=== PATIENT | female | born 1970 | race Caucasian/White ===

== ENCOUNTER → 2023-06-11 15:41 | Outpatient (REF) | payer BC, SELFPAY | LOC: HWWDC 15:41 | PROVIDERS: ATTENDING PHYSICIAN Physician Assistant Medical | DX: Z12.31 Encounter for screening mammogram for malignant neoplasm of breast (principal) | CPT/HCPCS: 77063; 77067 ==

== ENCOUNTER → 2023-06-19 08:59 | Outpatient (REF) | payer BC, SELFPAY | LOC: WDC 08:59 | PROVIDERS: ATTENDING PHYSICIAN Physician Assistant Medical | DX: R92.8 Other abnormal and inconclusive findings on diagnostic imaging of breast (principal) | CPT/HCPCS: 77062; 77066 ==

== ENCOUNTER → 2023-07-02 15:25 | Outpatient (REF) | payer BC, SELFPAY | LOC: HWRAD 15:25 | PROVIDERS: ATTENDING PHYSICIAN Physician Assistant Medical | DX: R74.8 Abnormal levels of other serum enzymes (principal) | CPT/HCPCS: 76700 ==

== ENCOUNTER → 2023-07-06 07:42 | Outpatient (REF) | payer BC, SELFPAY ==
--- NOTE | 2023-07-06 08:48 | OID.BR.INTR ---
[facility] Navigator - Initial
- -
Date of Contact: 07/06/23
Met with patient. Patient given written information on navigator services and support services available at [facility]. Will follow up as needed per protocol.
== END ==
LOC: WDC 07:42
PROVIDERS: ATTENDING PHYSICIAN Physician Assistant Medical
DX: R92.1 Mammographic calcification found on diagnostic imaging of breast (principal)
CPT/HCPCS: 88305; 19081; 76098; A4648

== ENCOUNTER → 2023-07-18 10:17 | Outpatient (REF) | payer BC, SELFPAY | LOC: RAD 10:17 | PROVIDERS: ATTENDING PHYSICIAN Physician Assistant Medical | DX: M25.471 Effusion, right ankle (principal); M25.472 Effusion, left ankle | CPT/HCPCS: 73610 ==

== ENCOUNTER → 2023-08-20 07:40 | Outpatient (REF) | payer BC, SELFPAY | LOC: EMG 07:40 | PROVIDERS: ATTENDING PHYSICIAN Internal Medicine Rheumatology; FAMILY PHYSICIAN Physician Assistant Medical | DX: R20.2 Paresthesia of skin (principal) | CPT/HCPCS: 95886; 95913 ==

== ENCOUNTER → 2023-08-22 08:39 | Outpatient (REF) | payer BC, SELFPAY | LOC: RAD 08:39 | PROVIDERS: ATTENDING PHYSICIAN Internal Medicine Rheumatology; FAMILY PHYSICIAN Physician Assistant Medical | DX: M25.50 Pain in unspecified joint (principal); D86.9 Sarcoidosis, unspecified | CPT/HCPCS: 71046; 72050; 73030; 73110; 73130; 73630 ==

== ENCOUNTER 2023-10-04 16:33 | Inpatient (IN) | payer BC, SELFPAY ==
[2023-10-04] VITALS (10 sets, daily range): BP systolic 108–167; BP diastolic 66–108; BMI 22.8; BMI 21.5
[2023-10-04 08:22] LABS: % Basophils 0.5 % (0-2); % Eosinophils 0.4 % (0-6); % Immature Granulocytes 0.4 % (0-0.5); % Lymphocytes 6.1 % (20.5-51.1); % Monocytes 5.6 % (1.7-9.3); Absolute Lymphocytes 0.5 10^3/uL (1.2-3.4); Absolute Monocytes 0.5 10^3/uL (0.1-0.6); Absolute Neutrophils 7.3 10^3/uL (1.4-6.5); Hematocrit 37.4 % (37.0-47.0); Hemoglobin 13.2 g/dL (12.0-16.0); Mean Corp Hgb Conc. 35.3 g/dL (33.0-37.0); Mean Corpuscular Hgb 31.3 pg (27.0-31.0); Mean Corpuscular Volume 88.6 fL (81.0-99.0); Mean Platelet Volume 9.5 fL (7.4-10.4); Nucleated Red Blood Cells % 0 %; Platelet Count 164 10^3/uL (130-400); Red Blood Cell Count 4.22 10^6/uL (4.20-5.40); Red Cell Dist. Width 14.7 % (11.5-14.5); White Blood Cell Count 8.4 10^3/uL (4.8-10.8)
--- NOTE | 2023-10-04 08:26 | ED.GENMED ---
History of Present Illness
General
Chief Complaint: Abdominal Symptoms
Source: patient
Time Seen by Provider: 10/04/23 08:16
History of Present Illness
History of Present Illness:
53-year-old female with no significant past medical history presenting to the emergency department with significant other after patient awoke around 2 AM with persistent nausea and vomiting and subsequently also experiencing upper chest burning
sensation that has been constant with patient continuously retching. Significant other stating that patient has not been able to bring anything up over the last 2 hours but is still persistently retching. Patient is noted to drink 3 martinis daily
with last drink being around 7 PM last night. No history of similar pain or vomiting in the past. Denies any fevers, chills, rigors. States no abdominal pain associated. No urinary symptoms or bowel changes.
Past History
Past History
ED Past Medical History: None
ED Past Surgical History: None
Social History
Tobacco: Non-smoker
Alcohol: Daily (3 martinis)
Drug: None
Personal: Partner
Living: with family
Employment: Employed
Review of Systems
Review of Systems
All Other Systems: ROS reviewed and negative except as documented in HPI and ROS
Phy Exam
Physical Exam
Physical Exam:
GENERAL: Alert , appears uncomfortable, retching but no active vomitus
EYE: clear conjunctiva b/l
HEAD: NCAT
ENT: o/p clr, mmm.
CARDIAC: Regular rate and rhythm .
LUNGS: Clear breath sounds bilaterally, no acute respiratory distress, no wheezes/rales/rhonchi
Chest wall: No crepitus but patient does have some mild tenderness over the sternum
ABDOMEN: Soft, without focal tenderness, no r/g, no cvat
NEUROLOGICAL: Alert and oriented
SKIN: Warm and dry, skin intact.
MUSCULOSKELETAL: well perfused.
PSYCH: Normal and appropriate interaction.
Scores
Heart Failure Risk
Heart Failure Risk Score: Not Applicable
Heart Score for Chest Pain Patients
STEMI patient?: Not applicable
Withdrawal Assessment of Alcohol
Withdrawal Assessment Completed?: Yes
Nausea and Vomiting: Constant nausea, frequent dry heaves and vomiting
Tactile Disturbances: None
Tremor: Moderate, with patient's arms extended
Auditory Disturbances: Not present
Paroxysmal Sweats: No sweat visible
Visual Disturbances: Not present
Anxiety: Mild anxiety
Headache, Fullness in Head: Mild
Agitation: Normal activity
Orientation and clouding of sensorium: Oriented and can do serial additions
Total CIWA Score: 14
Alcohol Withdrawal Medication Recommendation: Equal to MSAS Score 5-7. Lorazepam 1mg IV or PO NOW & re-assess q2hrs
Course
Orders/Labs/Results
Orders:
Orders
10/04/23 07:59
Complete Blood Count/With Diff Urgent
Comprehensive Metabolic Panel Urgent
Lipase Urgent
10/04/23 08:03
EKG [Electrocardiogram (*1)] Urgent
Reason for Study: Chest Pain
EKG- Treatment ONCE
10/04/23 08:25
Add On- LAB Urgent
Tests Added?: troponin
0.9% Sodium Chloride 1000 ml [Nss] 1,000 ml IV BOLUS
Ondansetron Injectable [Zofran] 4 mg IV NOW STA
Pantoprazole [Protonix IV] 40 mg IV NOW STA
CR Chest - 2 Views Urgent
Comment:
Reason For Exam: vomiting, chest pain
10/04/23 09:16
Troponin I Routine
Comment: TP BE COLLECTED
10/04/23 10:59
Ondansetron Injectable [Zofran] 4 mg IV NOW STA
US Abdomen Complete/Upper Urgent
Comment:
Reason For Exam: persistent vomiting, LFT elevated, ETOH hx
10/04/23 11:56
0.9% Sodium Chloride 1000 ml [Nss] 1,000 ml IV BOLUS
10/04/23 14:00
Lorazepam [Ativan] 1 mg IV NOW STA
Metoclopramide [Reglan] 10 mg IV NOW STA
Abnormal Lab Results
10/04/23
07:59
MCH 31.3 H pg
(27.0-31.0)
RDW 14.7 H %
(11.5-14.5)
Absolute Neuts (auto) 7.3 H 10^3/uL
(1.4-6.5)
Absolute Lymphs (auto) 0.5 L 10^3/uL
(1.2-3.4)
Neutrophils % 87.0 H %
(42.2-75.2)
Lymphocytes % 6.1 L %
(20.5-51.1)
Potassium 3.4 L mmol/L
(3.5-5.1)
Creatinine 0.4 L mg/dL
(0.6-1.0)
Glucose 190 H mg/dl
(70-99)
Total Bilirubin 1.5 H mg/dl
(0.2-1.3)
AST 105 H U/L
(14-36)
ALT 39 H U/L
(0-35)
Alkaline Phosphatase 135 H U/L
(38-126)
Total Protein 8.6 H g/dl
(6.3-8.2)
Albumin 5.2 H g/dl
(3.5-5.0)
10/04/23 07:59
10/04/23 07:59
Vital Signs
Initial and Last Documented VS:
Initial Vital Signs
Temp Pulse BP Pulse Ox
98.2 F 77 163/91 95
10/04/23 07:48 10/04/23 07:48 10/04/23 07:48 10/04/23 07:48
Last Documented Vital Signs
Temp Pulse Resp BP Pulse Ox
98.2 F 75 28 167/96 99
10/04/23 07:48 10/04/23 08:03 10/04/23 08:03 10/04/23 08:03 10/04/23 08:03
MDM/Problems Addressed
Differential Diagnosis Includes:
GERD, gastritis, pancreatitis, Boerhaave syndrome, gastroenteritis
MDM/Problems Addressed:
3-year-old female presenting to the emergency department for evaluation of persistent nausea and vomiting since 2 AM with sudden onset. Patient also noted pain started at the same time as the nausea and vomiting. No crepitus to suggest Boerhaave's
however given the amount of retching and patient's pain that she is describing will obtain a chest x-ray. Labs initiated on arrival. I did add on a troponin. Will treat symptoms with Zofran, Protonix and fluids. Reassessment following
*Radiology
Radiology exam reviewed: preliminary read by ED provider (Normal x-ray) and radiology read reviewed (Fatty liver, cholelithiasis without evidence for acute cholecystitis)
*Pulse Oximetry
Patient hypoxic: no
*EKG
Interpreted by ED Provider?: Yes
Comparison EKG: no comparison EKG present
Heart Rate: 66
Rate: normal
[place]: left axis deviation
Ischemia: no ischemia
*Gmat Instructor Interpretation
Rate: normal
Rhythm: sinus
*Critical Care Note
Total Time (30-74mins, 75-104mins- exclusive of procedures): Not Applicable
Comment
Comment:
On reevaluation patient's symptoms are improving. No retching. Patient's labs most consistent with chronic alcohol use. Will continue to monitor and reassess with pending p.o. trial.
Following first re-eval, patient started to have retching again. Additional zofran ordered. I added on US as well given LFT elevation but suspect this is 2/2 ETOH use
On continued reevaluation patient is now having tremors, tachycardic and still having retching/nausea and vomiting. I have clinical concern for possible alcohol withdrawal and given patient's pain and symptoms possibility for cholecystitis.
Ultrasound shows fatty liver combined with gallstones but no evidence for cholecystitis. Given patient's continued symptoms right medications combined with what appears to be signs of alcohol withdrawal will admit for further treatment. 1 mg
Ativan IV and Reglan 10 mg IV ordered for further symptomatic control. Hospitalist team notified and accepts for continued evaluation and treatment.
Patient Management
Discussion with other providers: Hospitalist
ED Attending Note
-
Portions of this chart may have been created with voice recognition software.� Occasional wrong word or��sound alike� substitutions may have occurred due to the inherent limitations of voice recognition software.
Discharge Plan
Departure
Patient Disposition: Admit
Date of Disposition: 10/04/23
Time of Disposition: 14:11
Presentation/result/management discussed w/ accepting MD/DO: Hospitalist
Discharge Problem:
Alcohol withdrawal, Nausea and vomiting, Cholelithiasis
Referrals:
Teresa Alcantar PA [Family Provider] -
Interventions
Interventions:
*Risk Screen - Suicide Last Done: 10/04/23 07:48
*General Assessment Last Done: 10/04/23 07:48
*Neglect/Abuse Screening Last Done: 10/04/23 07:48
ED- Fall Risk Assessment Last Done: 10/04/23 08:27
*ED COVID-19 Vaccine History Last Done: 10/04/23 07:48
TL-Gelngh-Plhcduhgcm Assessment Last Done: 10/04/23 08:27
Discharge Date and Time
Print Language: KAZAKH
[2023-10-04 08:30] LABS: ALT (SGPT) 39 U/L (0-35); AST (SGOT) 105 U/L (14-36); Albumin 5.2 g/dl (3.5-5.0); Alkaline Phosphatase 135 U/L (38-126); Blood Urea Nitrogen 7 mg/dl (7-17); Calcium 9.8 mg/dl (8.4-10.2); Carbon Dioxide 23 mmol/L (22-30); Chloride 99 mmol/L (98-107); Estimated Creatinine Clearance 88 ml/min; Glucose 190 mg/dl (70-99); Lipase 52 U/L (23-300); Potassium 3.4 mmol/L (3.5-5.1); Sodium 141 mmol/L (135-145); Total Bilirubin 1.5 mg/dl (0.2-1.3); Total Protein 8.6 g/dl (6.3-8.2); eGFR > 60.00
[2023-10-04] MEDS: NSS 1000 IV ×3 (09:15→18:49)
[2023-10-04] MEDS: PROTONIX IV 40 MG IV (09:16)
[2023-10-04] MEDS: ZOFRAN 4 MG IV ×2 (09:16→11:05)
[2023-10-04 09:52] LABS: Troponin I < 0.012 ng/ml
[2023-10-04] MEDS: REGLAN 10 MG IV (15:14)
[2023-10-04] MEDS: ATIVAN 1 MG IV (15:14)
--- NOTE | 2023-10-04 16:47 | HPS.HSE ---
Family Physician
-
Family Physician: Teresa Alcantar
Chief Complaint
-
Burning chest pain, intractable nausea vomiting
History of Present Illness
53-year-old female with past history of hypothyroidism, hyperlipidemia presenting to the ER with multiple episodes of nausea, bilious vomiting and burning chest pain that woke her up last night at around 2 AM. Patient notes chills and 2 episodes of
loose stools. No fever, abdominal pain, urinary symptoms, photophobia, phonophobia, change in medications. Did not notice blood in her stool and vomits. Patient drinks 3 martinis daily, last drink was at 7 PM last night. Patient had quit
drinking in March 2023 but resumed drinking alcohol a few months ago. Does not report history of withdrawal symptoms on days that she does not drink. She reports no symptoms in her significant other. 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
her joint pain and tingling sensation in her upper and lower extremities. No headaches. Very mild tremor on extension of upper extremities. CIWA score was 14 in ER. Abdominal ultrasound this admission shows hepatosplenomegaly and cholelithiasis
without gallbladder wall thickening and CBD dilatation. Earlier lab test in June 2023 show mildly elevated AST, ALT, ALP with normal total bilirubin. Abdominal ultrasound in May 2023 did not demonstrate gallbladder stones. Hepatitis panel
negative. She is currently not feeling nauseous and not throwing up.
Medical History
Past Medical History
Past Medical History: Reports Hypercholesterolemia, Hypothyroidism and Other (IBS in childhood)
Past Surgical History: Reports None
Social History
Tobacco: Former Smoker
Alcohol: Daily (3 martinis daily)
Living: With Family
Family History
Family History: CAD (Mother has CAD (stents)) and Other (Father has SVT. Sister has PVC.)
Allergies / Home Medications
Allergies reflects when Allergies were last updated in [facility].
Home Medications with original date entered in [facility]
Allergy/Medication List:
Allergies
Allergy/AdvReac Type Severity Reaction Status Date / Time
NKA - No Known Allergies Allergy Uncoded 06/17/07 10:55
Home Medications
atorvastatin 20 mg tablet 20 mg PO QPM 10/04/23
cyanocobalamin (vitamin B-12) 1,000 mcg tablet 1,000 mcg PO DAILY 10/04/23
ergocalciferol (vitamin D2) 1,250 mcg (50,000 unit) capsule 1,250 mcg PO MO 10/04/23
levothyroxine 75 mcg tablet (Synthroid) 75 mcg PO DAILY 10/04/23
Review of Systems
-
History Source: Patient
EENT: Reports No Symptoms
Respiratory: Reports No Symptoms
Cardiac: Reports No Symptoms
Abdomen/GI: Reports No Symptoms
: Reports No Symptoms
Musculoskeletal: Reports Joint Pain and Other (Tingling sensation in upper and lower extremities)
Hematologic/Lymphatic: Reports No Symptoms
Psych: Reports Anxiety
Physical Exam
Vital Signs
Vital Signs
Temp Pulse Resp BP Pulse Ox
98.2 F 97 21 125/74 96
10/04/23 07:48 10/04/23 15:30 10/04/23 15:30 10/04/23 15:29 10/04/23 15:30
Physical Exam
General: Well Developed, Well Nourished and No Apparent Distress
Respiratory: Clear
Cardiac: S1/S2 and Regular Rhythm
GI: Soft, Non Tender, Non Distended, Normal Bowel Sounds and Organomegaly (Hepatomegaly)
Musculoskeletal: No Edema
Neuro: Awake, Alert and Oriented
Laboratory Results
-
10/04/23 07:59
10/04/23 07:59
Laboratory Results
Total Bilirubin 1.5 mg/dl (0.2-1.3) H 10/04/23 07:59
AST 105 U/L (14-36) H 10/04/23 07:59
ALT 39 U/L (0-35) H 10/04/23 07:59
Alkaline Phosphatase 135 U/L (38-126) H 10/04/23 07:59
Troponin I < 0.012 ng/ml 10/04/23 09:16
Lipase 52 U/L (23-300) 10/04/23 07:59
Impression/Plan
-
IMPRESSION: 53-year-old female with history of hypothyroidism, hyperlipidemia presenting with intractable nausea and vomiting.
PLAN:
Intractable nausea/vomiting
-Likely multifactorial, secondary to alcohol withdrawal, gastritis, less likely biliary colic
-No right upper quadrant pain or tenderness, LFTs abnormal (chronic), GI consult appreciated
-IV fluids, Zofran, Protonix
-Clear fluids
Alcohol withdrawal syndrome
-Alcohol withdrawal protocol
-Reassess tomorrow
Hyperbilirubinemia
-Mildly elevated total bilirubin (1.5)
-No right upper quadrant pain or tenderness
-Abdominal ultrasound demonstrates cholelithiasis without gallbladder wall thickening
-GI consult
Hepatosplenomegaly, abnormal liver function tests
-Likely secondary to chronic alcohol use
-Check LFTs tomorrow
-GI consult
Hyperlipidemia
-Continue atorvastatin
Hypothyroidism
-Continue levothyroxine
Full code
DVT prophylaxis Lovenox
--- NOTE | 2023-10-04 17:21 | W.PN.UPDATE ---
Update Note
Progress Note Update
Seen and examined by me independently in collaboration with the medical translator Veronika.
Lab data and imaging data reviewed.
Addendum as below :
53-year-old female presents with acute onset of nausea vomiting and burning abdominal pain starting around 2 AM. She was in her usual state of health. She had her dinner and slept around 830 but then at 2:00 she was woken up by about GI
symptoms. She had multiple episodes of vomiting. She had this burning kind of lower chest pain. She had 2 loose bowel movements. No fevers but she felt chilly.
She denies any chronicity to her GI symptoms. She in the past was told may be irritable bowel syndrome. She denies any heartburn or requiring any as needed medication for heartburn. Denies any reflux symptoms.
Currently denying any abdominal pain. Denies prior history of peptic ulcer disease. No history of pancreatitis.
She had chillie for dinner prepared by . is ok.
She last week had rheumatological evaluation. Small joint symptoms in her hands and she got rheumatological blood work. Follow-up appointment is pending.
She apparently tells me that rheumatology wanted her to go to see neurology for neuropathy and also advised to see a GI physician because of abnormal liver function test. Abnormal liver function test were noted in May or June blood work.
She had issues with alcoholism in the past and went cold turkey but then she started back in June after her birthday and anniversary celebrations. She is now drinking 3 glasses of martini every day. Occasionally she goes without alcohol the day at
2 without any withdrawal symptoms. Denies any prior history of withdrawal seizures.
In ER she needed multiple medications for upper GI symptoms and that she was not tolerating any diet so she is referred to medicine for further evaluation and treatments.
Past medical history of hyperlipidemia hypothyroidism noted. Non-smoker.
Afebrile and hemodynamically stable. Tachycardic-sinus rhythm on the monitor.
Looks bit anxious. Occasional tremors noted. No agitation. Alert and oriented timesx 3.
S1 plus S2 regular. Chest is clear.
Abdomen palpable liver edge noted mostly epigastric area. No tenderness. No guarding rigidity.
Neurologically grossly nonfocal.
Intractable nausea and vomiting-acute onset since middle of the night-family history presenting with concern of manage possible gastric pathology-gastritis, erosions. In the differential could be foodborne but nobody sick at home. Another
differential is biliary colic with abdo pain which is now better.
She ultrasound done and now beginning of this year which showed no cholelithiasis and now she has cholelithiasis. No evidence of cholecystitis. If symptoms were to be continued then would consider HIDA scan. For now treat symptomatically with
PPI, antiemetics and IV fluids. Keep on clear liquid diet.
Abnormal liver function test-based on labs from [facility] on patient phone these are chronic. There was also hepatosplenomegaly. There is palpable hepatomegaly today. She has ongoing alcoholism issues. Lipase is normal. no bile duct
obstruction on ultrasound today. No ascites noted. Consult GI.
Alcohol use disorder-watch out for withdrawal.
--- NOTE | 2023-10-04 18:36 | PTCARENOTE ---
Rcvd pt from ED, pt is a&ox4, in no distress, appears unsteady on feet, will need assistance to bathroom. Vitals stable, STach at 101. no complaints of N/V just a headache.
[2023-10-04 18:56] LABS: INR 1.37; PT 16.7 Sec (11.4-14.6)
[2023-10-04 18:57] LABS: APTT 33.9 Sec (23.4-35.0)
[2023-10-04 19:02] LABS: GGTP 395 U/L (12-43); Magnesium 1.1 mg/dl (1.6-2.3); Phosphorus 4.3 mg/dl (2.5-4.5)
[2023-10-04 19:04] LABS: Alcohol None Detected
[2023-10-04 19:08] LABS: B-Hydroxybutyrate 0.33 mmol/L (0.02-0.27)
[2023-10-04] MEDS: LIPITOR 20 MG PO (19:38)
[2023-10-04] MEDS: LOVENOX 40 MG SC (19:38)
[2023-10-04] MEDS: THIAMINE INJECTION 200 MG IV (19:38)
[2023-10-04] MEDS: TYLENOL 650 MG PO (23:21)
[2023-10-05 01:33] LABS: Urine Albumin Negative (Neg - Trace); Urine Bilirubin Negative (Negative); Urine Character Clear (Clear); Urine Color Yellow; Urine Glucose Negative (Negative); Urine Ketone Negative (Negative); Urine Leukocyte 1+ (Negative); Urine Nitrite Negative (Negative); Urine Occult Blood Trace (Negative); Urine Urobilinogen Negative (Neg - 1+)
[2023-10-05 01:45] LABS: Urine Squamous Cell 16-20 /LPF (Few)
[2023-10-05 01:46] LABS: Urine Bacteria Few (Negative); Urine Red Blood Cell None Seen /HPF (0-2); Urine White Cell 30-40 /HPF (0-5)
[2023-10-05] MEDS: NSS 1000 IV ×3 (02:38→22:18)
[2023-10-05] MEDS: SYNTHROID 75 MCG PO (05:45)
[2023-10-05 07:03] LABS: ALT (SGPT) 28 U/L (0-35); AST (SGOT) 80 U/L (14-36); Alkaline Phosphatase 98 U/L (38-126); Blood Urea Nitrogen 5 mg/dl (7-17); Calcium 8.7 mg/dl (8.4-10.2); Carbon Dioxide 25 mmol/L (22-30); Chloride 100 mmol/L (98-107); Estimated Creatinine Clearance 88 ml/min; Glucose 103 mg/dl (70-99); Potassium 3.1 mmol/L (3.5-5.1); Sodium 133 mmol/L (135-145); Total Bilirubin 1.4 mg/dl (0.2-1.3); eGFR > 60.00
[2023-10-05] MEDS: NSS (PRESERVATIVE FREE) 10 ML IV (07:32)
[2023-10-05] MEDS: PROTONIX IV 40 MG IV (07:33)
[2023-10-05] MEDS: THIAMINE INJECTION 200 MG IV ×2 (07:33→19:47)
[2023-10-05] MEDS: VITAMIN B-12 1000 MCG PO (07:33)
[2023-10-05] MEDS: FOLVITE 1 MG PO (07:34)
[2023-10-05 07:37] LABS: % Basophils 0.4 % (0-2); % Eosinophils 0.1 % (0-6); % Immature Granulocytes 0.6 % (0-0.5); % Lymphocytes 16.4 % (20.5-51.1); % Monocytes 11.3 % (1.7-9.3); % Neutrophils 71.2 % (42.2-75.2); Absolute Lymphocytes 1.2 10^3/uL (1.2-3.4); Absolute Monocytes 0.8 10^3/uL (0.1-0.6); Hematocrit 32.3 % (37.0-47.0); Hemoglobin 11.4 g/dL (12.0-16.0); Mean Corp Hgb Conc. 35.3 g/dL (33.0-37.0); Mean Corpuscular Hgb 32.2 pg (27.0-31.0); Mean Corpuscular Volume 91.2 fL (81.0-99.0); Mean Platelet Volume 10.3 fL (7.4-10.4); Nucleated Red Blood Cells % 0 %; Platelet Count 117 10^3/uL (130-400); Red Blood Cell Count 3.54 10^6/uL (4.20-5.40); Red Cell Dist. Width 14.6 % (11.5-14.5); White Blood Cell Count 7.1 10^3/uL (4.8-10.8)
[2023-10-05] MEDS: DRISDOL (VITAMIN D2) 50000 UNITS PO (07:42)
[2023-10-05 07:56] VITALS: BP 125/69
[2023-10-05] MEDS: MAGNESIUM SULFATE 100 IV (08:56)
[2023-10-05] MEDS: KCL 40 MEQ PO (08:56)
[2023-10-05 10:55] VITALS: BMI 21.5
[2023-10-05] MEDS: TYLENOL 650 MG PO (13:27)
--- NOTE | 2023-10-05 14:01 | W.PN.HOSP.TC ---
Addendum entered and electronically signed by Demarcus Sanchez MD 10/05/23 16:56:
I personally performed a history and physical exam of the patient and discussed management with the resident. I reviewed the resident's note and agree with the documented findings and plan of care HPI/CC except for changes in documentation.
53-year-old with intractable nausea and vomiting
Ultrasound of the abdomen-hepatosplenomegaly. Hepatic parenchymal disease with fibrofatty changes. Cholelithiasis
CVS: S1-S2 normal
Chest: CTA B/L
Abdomen: Soft, mild epigastric tenderness/ Bowel sounds present
Extremities: No edema
# Intractable nausea and vomiting
Likely multifactorial from alcohol gastritis/alcohol withdrawal
Continue IV fluids, antiemetics and PPI
Clear liquids
# Alcohol use disorder with withdrawal
Continue MSAS protocol
Ativan as needed
Case management evaluation to see if the patient would benefit from rehab
# Cholelithiasis/hepatosplenomegaly/abnormal liver function tests
Hepatic steatosis
Elevated LFTs likely secondary to alcohol use and alcoholic hepatitis
CT A/P
# Hyponatremia-check osmolality studies, if not getting better
# Hypokalemia and hypomagnesemia-replace and recheck in am
# Thrombocytopenia-likely secondary to alcohol effect on bone marrow
# Hyperlipidemia-continue statin
# Abnormal urinalysis- repeat
# Hypothyroidism-continue Synthroid
# DVT prolapses and Lovenox
# Full code
Discussed with nursing
D/W GI
Original Note:
Today's Communication/Plan
-
CT abdomen pelvis with IV and oral contrast scheduled for today
Continue alcohol withdrawal protocol
Replete potassium and check later today
Replete magnesium and check later today
Assessment / Plan
Assessment / Plan
IMPRESSION: 53-year-old female with alcohol use disorder presenting with intractable nausea vomiting.
PLAN:
Intractable nausea vomiting
- Likely multifactorial, secondary to alcohol withdrawal, gastritis, less likely biliary colic
- No right upper quadrant pain or tenderness, LFTs mildly elevated (chronic)
- GI consult appreciated
- Abdomen pelvis CT scan with IV and oral contrast pending
- Continue IV fluids, Zofran, Protonix
- Continue clear fluids
Alcohol withdrawal syndrome
- Started on alcohol withdrawal protocol
- MSAS score:3
Hypokalemia, hypomagnesemia
- Replete potassium and magnesium
- Check labs later today
Hyperbilirubinemia
- Mildly elevated total bilirubin, now downtrending (1.4 today)
- No right upper quadrant pain or tenderness
- Abdominal ultrasound demonstrates cholelithiasis without gallbladder wall thickening
- GI consult appreciated
Hepatosplenomegaly, abnormal liver function tests
- Likely secondary to alcohol use disorder
- GI consult appreciated
- Outpatient follow-up
Hyperlipidemia
-Continue atorvastatin
Hypothyroidism
-Continue levothyroxine
Full code
DVT prophylaxis Lovenox
Anticipated Discharge: 24 - 48 hours
Subjective/Interval History
-
Date of Service: October 05, 2023
Objective Data
-
Labs:
Laboratory Results
10/05/23
04:44
WBC 7.1
Hgb 11.4 L
Hct 32.3 L
Plt Count 117 L D
Sodium 133 L D
Potassium 3.1 L
Chloride 100
Carbon Dioxide 25
BUN 5 L
Creatinine 0.4 L
Glucose 103 H
Calcium 8.7
Total Bilirubin 1.4 H
AST 80 H
ALT 28
Alkaline Phosphatase 98
Vital Signs:
Vital Signs
Temp Pulse Resp BP Pulse Ox
100 F 81 18 125/69 97
10/05/23 07:56 10/05/23 07:56 10/05/23 07:56 10/05/23 07:56 08/12/24 09:33
I&O
10/04/23 10/05/23 10/06/23
06:59 06:59 06:59
Intake Total 2460 / 2460
Output Total 250 / 250
Balance 2210 / 2210
Review of Systems
-
History Source: Patient
Constitutional: Reports Fever
EENT: Reports No Symptoms Reported
Respiratory: Reports No Symptoms
Cardiac: Reports No Symptoms
Abdomen/GI: Reports Other (Epigastric pain)
Genitourinary: Reports No Symptoms
Musculoskeletal: Reports Joint Pain
Neuro: Reports Headache (Relieved with Tylenol)
Endocrine: Reports No Symptoms
Hematologic / Lymphatic: Reports No Symptoms
Psych: Reports Anxious
Physical Exam
-
General: Well Developed, Well Nourished and No Apparent Distress
HEENT: Normocephalic
Respiratory: Clear to Auscultation
Cardiac: Regular Rhythm and S1/S2
GI: Soft, Nontender, Nondistended and Organomegaly
Genito-urinary: No Costovertebral Tender
Musculoskeletal: No Clubbing and No Edema
Neuro: Awake, Alert and Oriented
Hematologic / Lymphatic: No Lymphadenopathy
Psych: Anxious
--- NOTE | 2023-10-05 14:02 | CON.GI ---
Medical History
Chief Complaint / HPI
Chief Complaint: Intractable nausea vomiting
History of Present Illness:
Patient is a 53-year-old female with PMH of hypothyroidism, hyperlipidemia, and alcohol use disorder who was admitted due to intractable nonbloody bilious vomiting, persistent nausea and lower abdominal discomfort. Patient did not report fever but
had some chills. She also had 2 episodes of nonbloody loose stools within 24 hours. Did not state change in medications or recent travel. She drinks 3 martinis every day and her last drink was 7 PM in the evening before admission. Abdominal
ultrasound done in ED showed hepatosplenomegaly and cholelithiasis without gallbladder thickening and CBD distention. AST and total bili mildly elevated.
Patient does not have prior history of GERD and has never had endoscopy colonoscopy done before.
Past Medical History
Past Medical History: Hypercholesterolemia and Hypothyroidism
Social History
Tobacco: Former Smoker
Alcohol: Daily (3 martinis per day)
Drug: None
Living: With Family
Allergies / Home Medications
Allergy/AdvReac Type Severity Reaction Status Date / Time
NKA - No Known Allergies Allergy Uncoded 06/17/07 10:55
�Medication �Instructions �Recorded
atorvastatin 20 mg tablet 20 mg PO QPM 10/04/23
cyanocobalamin (vitamin B-12) 1,000 mcg PO DAILY 10/04/23
1,000 mcg tablet
ergocalciferol (vitamin D2) 1,250 1,250 mcg PO MO 10/04/23
mcg (50,000 unit) capsule
levothyroxine 75 mcg tablet 75 mcg PO DAILY 10/04/23
(Synthroid)
Review of Systems
-
History Source: Patient
All other systems: A 12 pt ROS was Negative except as stated above in HPI
Respiratory: Reports No Symptoms
Abdomen/GI: Reports Abdominal Pain (Patient mentions pain has shifted from around the umbilicus to right lower quadrant); Denies Nausea or Vomiting
Vital Signs
Temp Pulse Resp BP Pulse Ox
100 F 81 18 125/69 97
10/05/23 07:56 10/05/23 07:56 10/05/23 07:56 10/05/23 07:56 10/05/23 09:33
Physical Exam
Exam
General: Well Developed and No Apparent Distress
Respiratory: Clear
Cardiac: S1/S2 and Regular Rhythm
GI: Soft, Tender (Mild right lower quadrant tenderness, no rebound, no guarding) and Distended
Neuro: Awake, Alert, Oriented and AO x 3
Psych: Calm
Results
WBC 7.1 10^3/uL (4.8-10.8) 10/05/23 04:44
Hgb 11.4 g/dL (12.0-16.0) L 10/05/23 04:44
Hct 32.3 % (37.0-47.0) L 10/05/23 04:44
MCV 91.2 fL (81.0-99.0) 10/05/23 04:44
Plt Count 117 10^3/uL (130-400) L D 10/05/23 04:44
Absolute Neuts (auto) 5.0 10^3/uL (1.4-6.5) 10/05/23 04:44
PT 16.7 Sec (11.4-14.6) H 10/04/23 18:38
INR 1.37 10/04/23 18:38
APTT 33.9 Sec (23.4-35.0) 10/04/23 18:38
Sodium 133 mmol/L (135-145) L D 10/05/23 04:44
Potassium 3.1 mmol/L (3.5-5.1) L 10/05/23 04:44
Chloride 100 mmol/L (98-107) 10/05/23 04:44
Carbon Dioxide 25 mmol/L (22-30) 10/05/23 04:44
BUN 5 mg/dl (7-17) L 10/05/23 04:44
Creatinine 0.4 mg/dL (0.6-1.0) L 10/05/23 04:44
Calcium 8.7 mg/dl (8.4-10.2) 10/05/23 04:44
Total Bilirubin 1.4 mg/dl (0.2-1.3) H 10/05/23 04:44
AST 80 U/L (14-36) H 10/05/23 04:44
ALT 28 U/L (0-35) 10/05/23 04:44
Alkaline Phosphatase 98 U/L (38-126) 10/05/23 04:44
Lipase 52 U/L (23-300) 10/04/23 07:59
Diagnostic Image Results:
Abdominal ultrasound (10/04/2023 ): hepatosplenomegaly and cholelithiasis without gallbladder wall thickening and CBD dilatation.
Prior GI Procedures: Has never done endoscopy or colonoscopy before. Has done Cologuard in May per PCP request which was normal.
Assessment / Plan
-
53-year-old female with history of hypothyroidism, hyperlipidemia, alcohol use disorder presenting with intractable nausea/vomiting and lower abdominal pain. Patient currently denies nausea vomiting. Last bowel movement was 5 AM yesterday. Boggs
sign is negative. Is able to tolerate clears. 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 Currently on MSAS protocol. On examination, patient has mild right lower quadrant tenderness. Mentions pain has shifted from periumbilical to RLQ. No
guarding or rebound.
Plan:
-Abdominal CT scan with IV/oral contrast to rule out appendicitis
-Continue supportive management with IV fluids
-Continue Protonix
-Advance diet as tolerated
-
-
Thank you for consultation and allowing me to participate in the patient's care. Please call the organizational development manager GI physician during the after hours with any questions or concerns.
[2023-10-05 14:08] LABS: HCG, Serum Qualitative Screen Negative
[2023-10-05] MEDS: OMNIPAQUE 50 ML PO (14:32)
[2023-10-05 15:50] VITALS: BP 148/94
[2023-10-05] MEDS: LOVENOX 40 MG SC (18:00)
[2023-10-05] MEDS: LIPITOR 20 MG PO (18:01)
[2023-10-05 20:50] LABS: Amphetamines Negative (Negative); Barbiturates Negative (Negative); Benzodiazepines Positive (Negative); Buprenorphine Negative (Negative); Cocaine Negative (Negative); Marijuana Positive (Negative); Methadone Negative (Negative); Methamphetamines Negative (Negative); Opiates Negative (Negative); Phencyclidine Negative (Negative); Tricyclic Antidepressants Negative (Negative)
[2023-10-05 20:54] LABS: Urine Albumin Negative (Neg - Trace); Urine Bilirubin Negative (Negative); Urine Character Clear (Clear); Urine Color Yellow; Urine Glucose Negative (Negative); Urine Ketone Negative (Negative); Urine Leukocyte Negative (Negative); Urine Nitrite Negative (Negative); Urine Occult Blood Negative (Negative); Urine Urobilinogen Negative (Neg - 1+)
[2023-10-05 21:08] LABS: Fentanyl, Urine Negative (Negative)
[2023-10-05 23:22] VITALS: BP 141/81
[2023-10-06] MEDS: SYNTHROID 75 MCG PO (05:58)
[2023-10-06 07:05] LABS: Hematocrit 32.4 % (37.0-47.0); Hemoglobin 11.5 g/dL (12.0-16.0); Mean Corp Hgb Conc. 35.5 g/dL (33.0-37.0); Mean Corpuscular Hgb 31.6 pg (27.0-31.0); Mean Platelet Volume 10.4 fL (7.4-10.4); Platelet Count 112 10^3/uL (130-400); Red Blood Cell Count 3.64 10^6/uL (4.20-5.40); Red Cell Dist. Width 14.6 % (11.5-14.5); White Blood Cell Count 5.5 10^3/uL (4.8-10.8)
[2023-10-06 07:30] VITALS: BP 134/80
[2023-10-06 07:41] LABS: ALT (SGPT) 34 U/L (0-35); AST (SGOT) 92 U/L (14-36); Albumin 3.9 g/dl (3.5-5.0); Alkaline Phosphatase 102 U/L (38-126); Blood Urea Nitrogen < 2 mg/dl (7-17); Calcium 9.1 mg/dl (8.4-10.2); Carbon Dioxide 25 mmol/L (22-30); Chloride 103 mmol/L (98-107); Estimated Creatinine Clearance 88 ml/min; Glucose 99 mg/dl (70-99); Potassium 3.1 mmol/L (3.5-5.1); Sodium 138 mmol/L (135-145); Total Bilirubin 1.4 mg/dl (0.2-1.3); eGFR > 60.00
[2023-10-06] MEDS: NSS (PRESERVATIVE FREE) 10 ML IV (08:08)
[2023-10-06] MEDS: PROTONIX IV 40 MG IV (08:08)
[2023-10-06] MEDS: THIAMINE INJECTION 200 MG IV ×2 (08:11→20:41)
[2023-10-06] MEDS: FOLVITE 1 MG PO (08:11)
[2023-10-06] MEDS: VITAMIN B-12 1000 MCG PO (08:11)
[2023-10-06] MEDS: KCL 40 MEQ PO (08:13)
[2023-10-06 08:58] LABS: Magnesium 1.6 mg/dl (1.6-2.3)
[2023-10-06] MEDS: MAGNESIUM OXIDE 500 MG PO (10:21)
[2023-10-06] MEDS: ZOFRAN 4 MG IV (10:21)
--- NOTE | 2023-10-06 10:43 | W.PN.GI.CBS2 ---
Today's Communication / Plan
-
Surgery consult for possible cholecystectomy during current admission-Continue supportive management
Assessment / Plan
-
53-year-old female with history of hypothyroidism, hyperlipidemia, alcohol use disorder presenting with intractable nausea/vomiting and lower abdominal pain. Patient currently denies nausea vomiting. Last bowel movement was 5 AM yesterday. Boggs
sign is negative. Is able to tolerate clears. 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 Currently on MSAS protocol. On examination, patient has mild right lower quadrant tenderness. Mentions pain has shifted from periumbilical to RLQ. No
guarding or rebound.
Plan:
- Abdominal CT did not suggest appendicitis
- Continue supportive management with IV fluids and Protonix
- Advance diet as tolerated
- Advised alcohol abstinence
- Given CT findings suggesting cirrhotic liver, will need FibroScan as outpatient. Patient to follow-up with us in November
- Eventual screening colonoscopy and endoscopy to r/o varices
- Surgery consult for possible cholecystectomy during current admission
Subjective
Subjective
Date of Service: October 06, 2023
Patient has on and off epigastric abdominal pain. No nausea/vomiting. Last BM was 10/03 which was loose and non-bloody. No fevers overnight.
Objective
Data Reviewed
Laboratory Data:
Laboratory Results
10/06/23 06:20
10/06/23 06:20
Laboratory Results
PT 16.7 Sec (11.4-14.6) H 10/04/23 18:38
INR 1.37 10/04/23 18:38
APTT 33.9 Sec (23.4-35.0) 10/04/23 18:38
Phosphorus 4.3 mg/dl (2.5-4.5) 10/04/23 18:38
Magnesium 1.6 mg/dl (1.6-2.3) 10/06/23 06:20
Total Bilirubin 1.4 mg/dl (0.2-1.3) H 10/06/23 06:20
AST 92 U/L (14-36) H 10/06/23 06:20
ALT 34 U/L (0-35) 10/06/23 06:20
Alkaline Phosphatase 102 U/L (38-126) 10/06/23 06:20
Lipase 52 U/L (23-300) 10/04/23 07:59
Vital Signs and I&O:
Vital Signs
Temp Pulse Resp BP Pulse Ox
99.4 F 64 18 134/80 100
10/06/23 07:30 10/06/23 07:30 10/06/23 07:30 10/06/23 07:30 10/06/23 07:30
I&O
10/05/23 10/06/23 10/07/23
06:59 06:59 06:59
Intake Total 2460 / 2460 1440 / 1440
Output Total 250 / 250
Balance 2210 / 2210 1440 / 1440
Physical Exam
Physical Exam
HEENT: Anicteric and Moist mucous membranes
Cardiology: Normal Sinus Rhythm, S1 and S2
Pulmonary: Clear
GI: Soft, Non Distended, Non Tender and Normal Bowel Sounds
--- NOTE | 2023-10-06 10:44 | PTCARENOTE ---
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 She has complaints of lower abdominal discomfort and cramping. MD notified. Will collect stool
specimen. Educated patient and placed hat in toilet. Patient states that she has slight nausea - Zofran given.
--- NOTE | 2023-10-06 11:37 | CM ---
CM met with Neda and her at bedside to complete IA. They live together in a 'twin' and are on the first level; no steps to enter, and all living space is on the ground floor.
CM consult received for substance abuse concern. Neda reports a history of ETOH off and on. She has always stopped drinking ETOH when she felt her use was escalating, but does relapse when she 'feels like things are under control'. Neda did
have a DUI and attended classes in the past. She tried AA but did not feel that she fit in there. She is currently seeing an individual counselor on a regular basis and feels that the support of the counselor and her own efforts will enable her to
stop drinking. She did share that her drinks beer and bourbon in the home, but 'keeps it on the down low'; stating he does not flaunt it or bring it to her attention.
Surgery consult for possible cholecystectomy.
Plan: Neda will return home with her at discharge. She intends to stop her drinking 'for good' and is working with her individual counselor about this issue.
PCP: Teresa Alcantar
Pharmacy: [facility] in [place]
--- NOTE | 2023-10-06 13:52 | W.PN.HOSP.TC ---
Addendum entered and electronically signed by Demarcus Sanchez MD 10/06/23 15:03:
I personally performed a history and physical exam of the patient and discussed management with the resident. I reviewed the resident's note and agree with the documented findings and plan of care HPI/CC except for changes in documentation.
53-year-old with intractable nausea and vomiting
Ultrasound of the abdomen-hepatosplenomegaly. Hepatic parenchymal disease with fibrofatty changes. Cholelithiasis
CT abdomen and pelvis-trace pleural effusion bilaterally. Atelectasis. Fatty infiltration of liver. Hepatomegaly. Findings highly suggestive of cirrhosis. Splenic size upper range of normal. Trace amount of ascites adjacent to the liver.
Heterogeneous enhancement of the uterus with 1 cm left-sided coarse calcification likely fibroid
CVS: S1-S2 normal
Chest: CTA B/L
Abdomen: Soft, NT
# Intractable nausea and vomiting
Likely multifactorial from alcohol gastritis/alcohol withdrawal
Continue antiemetics and PPI
Clear liquids. Advance if she feels better
Diarrhea- Stool studies
# Alcohol use disorder with withdrawal
Continue MSAS protocol
# Hypokalemia-replace
# Cholelithiasis/hepatosplenomegaly/abnormal liver function tests
Hepatic steatosis
Elevated LFTs likely secondary to alcohol use and alcoholic hepatitis
CT A/P-without acute changes
# Hyponatremia-check osmolality studies, if not getting better
# Hypokalemia and hypomagnesemia-replace
# Thrombocytopenia-likely secondary to alcohol effect on bone marrow
# Hyperlipidemia-continue statin
# Abnormal urinalysis- repeat normal
# Hypothyroidism-continue Synthroid
# DVT prolapses and Lovenox
# Full code
D/W RN
Original Note:
Today's Communication/Plan
-
Advance to low-fat diet
Replete potassium magnesium
Check stool C. difficile, culture
Assessment / Plan
Assessment / Plan
IMPRESSION: 53-year-old female with alcohol use disorder presenting with intractable nausea vomiting. Patient feeling better, notes diarrhea since last night (no blood in stool) and intermittent epigastric pain (~5 mins each episode).
PLAN:
Intractable nausea vomiting
- Likely multifactorial, secondary to alcohol withdrawal, gastritis, less likely biliary colic
- No right upper quadrant pain or tenderness, LFTs mildly elevated (chronic)
- GI following
- Abdomen pelvis CT scan with IV and oral contrast -findings suggestive of cirrhosis, likely fibroid involvement of the uterus
- Continue IV fluids, Zofran, Protonix
- Advance to low-fat diet
Alcohol withdrawal syndrome
- Started on alcohol withdrawal protocol
- MSAS score: 1
Hypokalemia, hypomagnesemia
- Replete potassium and magnesium
- Check labs later today
Hyperbilirubinemia
- Mildly elevated total bilirubin, downtrending (1.4 today)
- No right upper quadrant pain or tenderness
- Abdominal ultrasound demonstrated cholelithiasis without gallbladder wall thickening
- GI following, outpatient follow-up for colonoscopy
Hepatosplenomegaly, abnormal liver function tests
- Likely secondary to alcohol use disorder
- GI following
- Outpatient follow-up
Hyperlipidemia
-Continue atorvastatin
Hypothyroidism
-Continue levothyroxine
Full code
DVT prophylaxis Lovenox
Anticipated Discharge: 24 - 48 hours
Subjective/Interval History
-
Date of Service: October 06, 2023
Objective Data
-
Labs:
Laboratory Results
10/06/23
06:20
WBC 5.5
Hgb 11.5 L
Hct 32.4 L
Plt Count 112 L
Sodium 138
Potassium 3.1 L
Chloride 103
Carbon Dioxide 25
BUN < 2 L
Creatinine 0.4 L
Glucose 99
Calcium 9.1
Total Bilirubin 1.4 H
AST 92 H
ALT 34
Alkaline Phosphatase 102
Vital Signs:
Vital Signs
Temp Pulse Resp BP Pulse Ox
99.4 F 64 18 134/80 96
10/06/23 07:30 10/06/23 07:30 10/06/23 07:30 10/06/23 07:30 10/06/23 10:58
I&O
10/05/23 10/06/23 10/07/23
06:59 06:59 06:59
Intake Total 2460 / 2460 1440 / 1440
Output Total 250 / 250
Balance 2210 / 2210 1440 / 1440
Review of Systems
-
History Source: Patient
Constitutional: Reports Fever
EENT: Reports No Symptoms Reported
Respiratory: Reports No Symptoms
Cardiac: Reports No Symptoms
Abdomen/GI: Reports Diarrhea (No blood in stool) and Other (Epigastric pain)
Genitourinary: Reports No Symptoms
Musculoskeletal: Reports Joint Pain
Neuro: Reports Headache (Relieved with Tylenol)
Endocrine: Reports No Symptoms
Hematologic / Lymphatic: Reports No Symptoms
Psych: Reports Anxious
Physical Exam
-
General: Well Developed, Well Nourished and No Apparent Distress
HEENT: Normocephalic
Respiratory: Clear to Auscultation
Cardiac: Regular Rhythm and S1/S2
GI: Soft, Nontender, Nondistended and Organomegaly
Genito-urinary: No Costovertebral Tender
Musculoskeletal: No Clubbing and No Edema
Neuro: Awake, Alert and Oriented
Hematologic / Lymphatic: No Lymphadenopathy
Psych: Anxious
[2023-10-06 15:25] VITALS: BP 137/83
[2023-10-06] MEDS: LIPITOR 20 MG PO (17:39)
[2023-10-06] MEDS: LOVENOX 40 MG SC (17:39)
[2023-10-06] MEDS: FLUSH (NSS) 1 FLUSH IV (20:43)
[2023-10-06] MEDS: KCL 20 MEQ PO (20:43)
[2023-10-06 23:46] VITALS: BP 133/79
[2023-10-07] MEDS: SYNTHROID 75 MCG PO (05:33)
[2023-10-07 07:15] VITALS: BP 144/80
[2023-10-07] MEDS: NSS (PRESERVATIVE FREE) 10 ML IV (08:35)
[2023-10-07] MEDS: MAGNESIUM OXIDE 500 MG PO (08:35)
[2023-10-07] MEDS: PROTONIX IV 40 MG IV (08:35)
[2023-10-07] MEDS: FOLVITE 1 MG PO (08:35)
[2023-10-07] MEDS: VITAMIN B-12 1000 MCG PO (08:35)
[2023-10-07] MEDS: FLUSH (NSS) 2 FLUSH IV (08:36)
[2023-10-07] MEDS: THIAMINE INJECTION 200 MG IV (08:36)
[2023-10-07 09:00] LABS: % Basophils 0.3 % (0-2); % Eosinophils 1.2 % (0-6); % Immature Granulocytes 0.5 % (0-0.5); % Lymphocytes 24.4 % (20.5-51.1); % Monocytes 12.4 % (1.7-9.3); % Neutrophils 61.2 % (42.2-75.2); Absolute Eosinophils 0.1 10^3/uL (0-0.7); Absolute Lymphocytes 1.4 10^3/uL (1.2-3.4); Absolute Monocytes 0.7 10^3/uL (0.1-0.6); Absolute Neutrophils 3.6 10^3/uL (1.4-6.5); Hematocrit 35.9 % (37.0-47.0); Hemoglobin 12.5 g/dL (12.0-16.0); Mean Corp Hgb Conc. 34.8 g/dL (33.0-37.0); Mean Corpuscular Hgb 32.2 pg (27.0-31.0); Mean Corpuscular Volume 92.5 fL (81.0-99.0); Mean Platelet Volume 10.1 fL (7.4-10.4); Nucleated Red Blood Cells % 0 %; Platelet Count 116 10^3/uL (130-400); Red Blood Cell Count 3.88 10^6/uL (4.20-5.40); Red Cell Dist. Width 14.5 % (11.5-14.5); White Blood Cell Count 5.8 10^3/uL (4.8-10.8)
--- NOTE | 2023-10-07 09:27 | W.PN.GI.CBS2 ---
Today's Communication / Plan
-
Surg consult for cholelithiasis evaluation
Assessment / Plan
-
53-year-old female with history of hypothyroidism, hyperlipidemia, alcohol use disorder presenting with intractable nausea/vomiting and lower abdominal pain. Patient currently denies nausea/ vomiting. Last bowel movement was around 10 pm
yesterday. Was not able to tolerate breakfast due to abdominal pain. On examination, patient has mod RUQ and LLQ tenderness. No guarding or rebound. Abdominal CT did not suggest appendicitis
Recommendations:
- Surg consult placed for evaluation of GB stones and RUQ tenderness
- Continue supportive management with IV fluids and Protonix
- Advised alcohol abstinence
- Given CT findings suggesting cirrhotic liver, will need FibroScan as outpatient. Patient to follow-up with office in November and screening colonoscopy/endoscopy to be done
Subjective
Subjective
Date of Service: October 07, 2023
Patient is complaining of gastric pain after having portion of breakfast. She does not feel nauseous and no vomiting. Her last bM was last night which was loose. Believes abd pain is worse than yesterday and points to RUQ and LLQ. No fevers
overnight.
Objective
Data Reviewed
Laboratory Data:
Laboratory Results
10/07/23 08:11
Laboratory Results
PT 16.7 Sec (11.4-14.6) H 10/04/23 18:38
INR 1.37 10/04/23 18:38
APTT 33.9 Sec (23.4-35.0) 10/04/23 18:38
Phosphorus 4.3 mg/dl (2.5-4.5) 10/04/23 18:38
Magnesium 1.6 mg/dl (1.6-2.3) 10/06/23 06:20
Total Bilirubin 1.4 mg/dl (0.2-1.3) H 10/06/23 06:20
AST 92 U/L (14-36) H 10/06/23 06:20
ALT 34 U/L (0-35) 10/06/23 06:20
Alkaline Phosphatase 102 U/L (38-126) 10/06/23 06:20
Lipase 52 U/L (23-300) 10/04/23 07:59
Vital Signs and I&O:
Vital Signs
Temp Pulse Resp BP Pulse Ox
97.9 F 71 18 144/80 97
10/07/23 07:15 10/07/23 07:15 10/07/23 07:15 10/07/23 07:15 10/07/23 07:15
I&O
10/06/23 10/07/23 10/08/23
06:59 06:59 06:59
Intake Total 1440 / 1440 1080 / 1080
Balance 1440 / 1440 1080 / 1080
Physical Exam
Physical Exam
HEENT: Anicteric and Moist mucous membranes
Cardiology: Normal Sinus Rhythm, S1 and S2
Pulmonary: Clear
GI: Soft, Non Distended, Tender (Mod RUQ tenderness) and Normal Bowel Sounds
Extremities: No Edema
[2023-10-07 10:40] LABS: Blood Urea Nitrogen 4 mg/dl (7-17); Calcium 9.5 mg/dl (8.4-10.2); Carbon Dioxide 30 mmol/L (22-30); Chloride 98 mmol/L (98-107); Estimated Creatinine Clearance 88 ml/min; Glucose 99 mg/dl (70-99); Potassium 3.4 mmol/L (3.5-5.1); Sodium 137 mmol/L (135-145); eGFR > 60.00
--- NOTE | 2023-10-07 11:54 | W.PN.UPDATE ---
Update Note
Progress Note Update
Patient was seen by surgery. Surgery thinks pain is not related to GB.
- Patient is clear for discharge from GI standpoint.
- Plan for outpatient endo/colon in early November was discussed with patient.
- Advised patient regarding alcohol abstinence.
- We will sign off. Please call office in case of any questions.
--- NOTE | 2023-10-07 12:09 | CON.GS ---
Consultation
-
Requesting Provider: Graciela
Performing Provider: Anna
Reason for Consultation: Gallstones
Medical History
-
Chief Complaint: n/v
History of Present Illness:
53-year-old female with past history of presenting to the ER with multiple episodes of nausea, bilious vomiting and burning chest pain that woke her up last night at around 2 AM. Patient notes chills and 2 episodes of loose stools. No fever,
abdominal pain, urinary symptoms, photophobia, phonophobia, change in medications. Did not notice blood in her stool and vomits. Patient drinks 3 martinis daily, last drink was at 7 PM last night. Patient had quit drinking in March 2023 but
resumed drinking alcohol a few months ago. Does not report history of withdrawal symptoms on days that she does not drink. She reports no symptoms in her significant other. She is being followed by research program assistant for her joint pain and tingling
sensation in her upper and lower extremities. No headaches. Very mild tremor on extension of upper extremities. CIWA score was 14 in ER. Abdominal ultrasound this admission shows hepatosplenomegaly and cholelithiasis without gallbladder wall
thickening and CBD dilatation. Earlier lab test in June 2023 show mildly elevated AST, ALT, ALP with normal total bilirubin. Abdominal ultrasound in May 2023 did not demonstrate gallbladder stones. Hepatitis panel negative. She is currently not
feeling nauseous and not throwing up.
53F with acute onset n/v and chest pain that woke her at 2am. Several episodes of liquid stool since that time. Denies f/c. Heavy drinker. Reported RUQ pain today prompting surgical consult. On my encounter she has no RUQ ttp. She denies changes to
stool/urine color. She is interested in stopping drinking.
Past Medical History
Past Medical History: Other (hypothyroidism, hyperlipidemia, EtOH abuse)
Past Surgical History: Reviewed & Noncontributory
Social History
Tobacco: Former Smoker
Alcohol: Chronic Alcoholic
Living: With Family
Family History
Family History: Reviewed & Noncontributory
Allergies / Home Medications
Allergy/AdvReac Type Severity Reaction Status Date / Time
NKA - No Known Allergies Allergy Uncoded 06/17/07 10:55
�Medication �Instructions �Recorded �Confirmed �Type
atorvastatin 20 mg tablet 20 mg PO QPM 10/04/23 10/04/23 History
cyanocobalamin (vitamin B-12) 1,000 mcg PO DAILY 10/04/23 10/04/23 History
1,000 mcg tablet
ergocalciferol (vitamin D2) 1,250 1,250 mcg PO MO 10/04/23 10/04/23 History
mcg (50,000 unit) capsule
levothyroxine 75 mcg tablet 75 mcg PO DAILY 10/04/23 10/04/23 History
(Synthroid)
Review of Systems
-
A 10 point review of systems was completed, and was negative except as per HPI.
Physical Exam
Vital Signs
Temp Pulse Resp BP Pulse Ox
97.6 F 71 18 144/80 97
10/07/23 11:39 10/07/23 07:15 10/07/23 07:15 10/07/23 07:15 10/07/23 11:39
Body Mass Index (BMI) 21.5
Lab Results
10/07/23 08:11
10/07/23 08:11
WBC 5.8 10^3/uL (4.8-10.8) 10/07/23 08:11
Hgb 12.5 g/dL (12.0-16.0) 10/07/23 08:11
Hct 35.9 % (37.0-47.0) L 10/07/23 08:11
Plt Count 116 10^3/uL (130-400) L 10/07/23 08:11
Abs Immat Gran (auto) 0.0 10^3/uL (0-0.05) 10/07/23 08:11
Neutrophils % 61.2 % (42.2-75.2) 10/07/23 08:11
Physical Exam
General: Well Developed, Well Nourished and No Apparent Distress
HEENT: Normocephalic and Anicteric
GI: Soft, Non Tender and Non Distended
Skin: Warm and Dry
Neuro: AO x 3
Psych: Calm
Data Reviewed
-
CT Scan: Image Personally Visualized and interpreted, Report Reviewed by me, Discussed with Physician, Discussed with Patient and Discussed with Family
Ultrasound: Image Personally Visualized and interpreted, Report Reviewed by me, Discussed with Physician, Discussed with Patient and Discussed with Family
Labs: Labs Reviewed by me, Discussed with Physician, Discussed with Patient and Discussed with Family
Assessment / Plan
-
53F with likely EtOH hepatitis
AFVSS, feeling better today, c/o soreness to RUQ and LUQ that is mild and improving
Sharona diet
No leukocytosis, LFTs mildly elevated
US report indicates stones, on my interpretation this is less clearCT does show a small radiopaque stone in the fundus; no radiographic signs of acute gb pathology, there is hepatomegaly and scalloping
Child Ching A cirrhosis
No indication for surgical intervention
Pts with cirrhosis can develop liver pain, I suspect this is her current issue.
Advised what to watch for regarding symptoms from gallstones
All ?s answered
Pls call with ?s
--- NOTE | 2023-10-07 14:48 | W.PN.HOSP.TC ---
Addendum entered and electronically signed by Demarcus Sanchez MD 10/07/23 17:44:
I personally performed a history and physical exam of the patient and discussed management with the resident. I reviewed the resident's note and agree with the documented findings and plan of care HPI/CC.
CVS: S1-S2 normal
Chest: CTA B/L
Abdomen: Soft, NT / Bowel sounds present
Patient was seen earlier today. Late documentation
Pain better
Surgical evaluation requested per GI
Has some loose stools
Likely this is all gastroenteritis
Watch on current diet
Discharge tomorrow as patient does not feel comfortable today.
D/W GI
Original Note:
Today's Communication/Plan
-
Monitor patient for diet tolerance
If tolerated, discharged home
Assessment / Plan
Assessment / Plan
IMPRESSION: 53-year-old female with alcohol use disorder presenting with intractable nausea vomiting. Patient feeling better, no diarrhea since yesterday afternoon, has tolerated low-fat diet. Stable for discharge if tolerating diet.
PLAN:
Intractable nausea vomiting
- Likely multifactorial, secondary to alcohol withdrawal, gastritis, liver pain due to cirrhosis, less likely biliary colic
- No right upper quadrant pain or tenderness, LFTs mildly elevated (chronic)
- GI following, consulted surgery - no indication for surgical intervention, pain is likely related to her cirrhosis.
- Abdomen pelvis CT scan with IV and oral contrast -findings suggestive of cirrhosis, likely fibroid involvement of the uterus
- Continue IV fluids, Zofran, Protonix
- Advance to low-fat diet
Alcohol withdrawal syndrome
- Started on alcohol withdrawal protocol
- MSAS score: 0
Diarrhea
- Now resolved
- Stool C. difficile negative
- Stool culture for Salmonella, Campylobacter, Shiga toxin pending
Hypokalemia, hypomagnesemia
- Replete potassium
Hyperbilirubinemia
- Mildly elevated total bilirubin, downtrending (1.4 now)
- No right upper quadrant pain or tenderness
- Abdominal ultrasound demonstrated cholelithiasis without gallbladder wall thickening
- GI following, outpatient follow-up for colonoscopy
Hepatosplenomegaly, abnormal liver function tests
- Likely secondary to alcohol use disorder
- GI following
- Outpatient follow-up
Hyperlipidemia
-Continue atorvastatin
Hypothyroidism
-Continue levothyroxine
Full code
DVT prophylaxis Lovenox
Anticipated Discharge: Within 24 hours
Subjective/Interval History
-
Date of Service: October 07, 2023
Objective Data
-
Labs:
Laboratory Results
10/07/23
08:11
WBC 5.8
Hgb 12.5
Hct 35.9 L
Plt Count 116 L
Sodium 137
Potassium 3.4 L
Chloride 98
Carbon Dioxide 30
BUN 4 L
Creatinine 0.4 L
Glucose 99
Calcium 9.5
Vital Signs:
Vital Signs
Temp Pulse Resp BP Pulse Ox
97.6 F 71 18 144/80 97
10/07/23 11:39 10/07/23 07:15 10/07/23 07:15 10/07/23 07:15 10/07/23 11:39
I&O
10/06/23 10/07/23 10/08/23
06:59 06:59 06:59
Intake Total 1440 / 1440 1080 / 1080
Balance 1440 / 1440 1080 / 1080
Review of Systems
-
History Source: Patient
Constitutional: Reports Fever
EENT: Reports No Symptoms Reported
Respiratory: Reports No Symptoms
Cardiac: Reports No Symptoms
Abdomen/GI: Reports Other (Intermittent epigastric pain, not related to food consumption)
Genitourinary: Reports No Symptoms
Musculoskeletal: Reports Joint Pain
Neuro: Reports No Symptoms
Endocrine: Reports No Symptoms
Hematologic / Lymphatic: Reports No Symptoms
Psych: Reports Anxious
Physical Exam
-
General: Well Developed, Well Nourished and No Apparent Distress
HEENT: Normocephalic
Respiratory: Clear to Auscultation
Cardiac: Regular Rhythm and S1/S2
GI: Soft, Nontender, Tender (Epigastric tenderness, no rebound, no guarding) and Organomegaly
Genito-urinary: No Costovertebral Tender
Musculoskeletal: No Clubbing and No Edema
Neuro: Awake, Alert and Oriented
Hematologic / Lymphatic: No Lymphadenopathy
Psych: Anxious
[2023-10-07 15:50] VITALS: BP 129/78
[2023-10-07] MEDS: LIPITOR 20 MG PO (17:34)
[2023-10-07] MEDS: LOVENOX 40 MG SC (17:34)
[2023-10-07] MEDS: VITAMIN B1 100 MG PO (19:48)
[2023-10-07] MEDS: KCL 40 MEQ PO (19:48)
[2023-10-07 23:54] VITALS: BP 132/73
[2023-10-08] MEDS: SYNTHROID 75 MCG PO (05:43)
[2023-10-08 07:00] VITALS: BP 139/90
--- NOTE | 2023-10-08 08:05 | W.PN.HOSP.TC ---
Addendum entered and electronically signed by Demarcus Sanchez MD 10/08/23 13:46:
I personally performed a history and physical exam of the patient and discussed management with the resident. I reviewed the resident's note and agree with the documented findings and plan of care HPI/CC except changes in documentation.
CVS: S1-S2 normal
Chest: CTA B/L
Abdomen: Soft, NT
# Intractable nausea and vomiting
Likely multifactorial from alcohol gastritis/alcohol withdrawal
tolerating diet
Diarrhea better
Says she always had a sensitive stomach and IBS as a child.
# Alcohol use disorder. cessation advised. No rehab per pt.
# Hypokalemia-replaced
# Cholelithiasis/hepatosplenomegaly/abnormal liver function tests
Hepatic steatosis
Elevated LFTs likely secondary to alcohol use and alcoholic hepatitis
CT A/P with earlt changes of cirrhosis- advis
# Hyponatremia-better
# Hypokalemia and hypomagnesemia-replaced
# Thrombocytopenia-likely secondary to alcohol effect on bone marrow, better.
# Hyperlipidemia-continue statin
# Abnormal urinalysis- repeat normal
# Hypothyroidism-continue Synthroid
# DVT prolapses and Lovenox
# Full code
Follow up care discussed
Note for work given
Discharge coordination time over 30 min
Original Note:
Today's Communication/Plan
-
Discharge planning
Outpatient GI follow-up for liver disease management
Assessment / Plan
Assessment / Plan
IMPRESSION: 53-year-old female with alcohol use disorder presenting with intractable nausea vomiting. No diarrheal episodes today. Patient planned for discharge today.
PLAN:
Intractable nausea vomiting
- Likely multifactorial, secondary to alcohol withdrawal, gastritis, liver pain due to cirrhosis, less likely biliary colic
- No right upper quadrant pain or tenderness, LFTs mildly elevated (chronic)
- GI following, consulted surgery - no indication for surgical intervention, pain is likely related to her cirrhosis.
- Abdomen pelvis CT scan with IV and oral contrast -findings suggestive of cirrhosis, likely fibroid involvement of the uterus
- Continue IV fluids, Zofran, Protonix
- Advance to low-fat diet, tolerated
Alcohol withdrawal syndrome
- Started on alcohol withdrawal protocol
- MSAS score: 0
- Now resolved
Diarrhea
- Now resolved
- Stool C. difficile negative
- Stool culture for Salmonella, Shiga toxin negative; Campylobacter pending
Hypokalemia, hypomagnesemia
- Now resolved
Hyperbilirubinemia
- Mildly elevated total bilirubin, downtrending (1.4 now)
- No right upper quadrant pain or tenderness
- Abdominal ultrasound demonstrated cholelithiasis without gallbladder wall thickening
- GI following, outpatient follow-up
Hepatosplenomegaly, abnormal liver function tests
- Likely secondary to alcohol use disorder
- GI following
- Outpatient follow-up
Hyperlipidemia
-Continue atorvastatin
Hypothyroidism
-Continue levothyroxine
Full code
DVT prophylaxis Lovenox
Anticipated Discharge: Today
Subjective/Interval History
-
Date of Service: October 08, 2023
Objective Data
-
Labs:
Laboratory Results
10/08/23
06:35
WBC Pending
Hgb Pending
Hct Pending
Plt Count Pending
Sodium Pending
Potassium Pending
Chloride Pending
Carbon Dioxide Pending
BUN Pending
Creatinine Pending
Glucose Pending
Calcium Pending
Vital Signs:
Vital Signs
Temp Pulse Resp BP Pulse Ox
98.1 F 65 18 132/73 97
10/07/23 23:54 10/07/23 23:54 10/07/23 23:54 10/07/23 23:54 10/07/23 23:54
I&O
10/07/23 10/08/23 10/09/23
06:59 06:59 06:59
Intake Total 1080 / 1080 1440 / 1440 0 / 0
Balance 1080 / 1080 1440 / 1440 0 / 0
Review of Systems
-
History Source: Patient
Constitutional: Reports Fever
EENT: Reports No Symptoms Reported
Respiratory: Reports No Symptoms
Cardiac: Reports No Symptoms
Abdomen/GI: Reports Other (Intermittent epigastric pain, not related to food consumption)
Genitourinary: Reports No Symptoms
Musculoskeletal: Reports Joint Pain
Neuro: Reports No Symptoms
Endocrine: Reports No Symptoms
Hematologic / Lymphatic: Reports No Symptoms
Psych: Reports Anxious
Physical Exam
-
General: Well Developed, Well Nourished and No Apparent Distress
HEENT: Normocephalic
Respiratory: Clear to Auscultation
Cardiac: Regular Rhythm and S1/S2
GI: Soft, Nontender, Tender (Epigastric tenderness, no rebound, no guarding) and Organomegaly
Genito-urinary: No Costovertebral Tender
Musculoskeletal: No Clubbing and No Edema
Neuro: Awake, Alert and Oriented
Hematologic / Lymphatic: No Lymphadenopathy
Psych: Anxious
[2023-10-08 08:23] LABS: % Basophils 0.5 % (0-2); % Immature Granulocytes 0.3 % (0-0.5); % Lymphocytes 29.8 % (20.5-51.1); % Monocytes 13.7 % (1.7-9.3); % Neutrophils 53.7 % (42.2-75.2); Absolute Eosinophils 0.1 10^3/uL (0-0.7); Absolute Lymphocytes 1.8 10^3/uL (1.2-3.4); Absolute Monocytes 0.8 10^3/uL (0.1-0.6); Absolute Neutrophils 3.2 10^3/uL (1.4-6.5); Hematocrit 36.5 % (37.0-47.0); Hemoglobin 12.7 g/dL (12.0-16.0); Mean Corp Hgb Conc. 34.8 g/dL (33.0-37.0); Mean Corpuscular Volume 91.9 fL (81.0-99.0); Mean Platelet Volume 10.6 fL (7.4-10.4); Nucleated Red Blood Cells % 0 %; Platelet Count 125 10^3/uL (130-400); Red Blood Cell Count 3.97 10^6/uL (4.20-5.40); Red Cell Dist. Width 14.5 % (11.5-14.5); White Blood Cell Count 5.9 10^3/uL (4.8-10.8)
[2023-10-08 08:42] LABS: Blood Urea Nitrogen 5 mg/dl (7-17); Calcium 9.8 mg/dl (8.4-10.2); Carbon Dioxide 27 mmol/L (22-30); Chloride 101 mmol/L (98-107); Estimated Creatinine Clearance 88 ml/min; Glucose 98 mg/dl (70-99); Magnesium 1.6 mg/dl (1.6-2.3); Potassium 3.7 mmol/L (3.5-5.1); Sodium 137 mmol/L (135-145); eGFR > 60.00
--- NOTE | 2023-10-08 09:56 | W.DCSUMMARY ---
Discharge Summary
Discharge Data
Date of Admission: 10/04/23
Date of Discharge: 10/08/23
Total time spent discharging patient (in min): 35
-
Pending Results: No (Stool culture)
Hospital Course
Primary diagnosis:
Gastroenteritis
Alcohol withdrawal syndrome
Hypokalemia
Hypomagnesemia
Cholelithiasis
Secondary diagnosis:
Hypothyroidism
Hyperlipidemia
Patient is a 53 year old female with past history of EtOH use who came to the ED with nausea, vomiting, diarrhea, agitation and mild tremor of the upper extremities. Was started on alcohol withdrawal protocol. She noted intermittent abdominal pain
that was not related to food consumption. Abdominal US showed cholelithiasis, no gallbladder wall thickening, negative Boggs sign, hepatosplenomegaly with diffuse fibrofatty changes of the liver. Stool C. diff, Shigella, Salmonella, and
Campylobacter were negative. GI consulted and recommended CT scan and surgery consult given patient's continued abdominal pain. Abdomen/Pelvis CT scan demonstrated hepatomegaly and heterogeneous fatty infiltration of the liver (suggestive of
cirrhosis), small calcified gallstones and findings of fibroid involvement of the uterus. Electrolyte abnormalities (hypokalemia, hypomagnesemia) developed with diarrhea which were repleted. Her symptoms improved over the course of stay at hospital
and she tolerated low residue diet. Patient advised to completely abstain from alcohol (abnormal liver function tests which were also seen Zoe this year - AST:92, Bili:1.4, INR:1.37, Qjj=743, Alb:3.9). Patient will need outpatient followup with
gastroenterology for liver disease management (has an appointment in November).
Patient is medically stable for discharge to home with home meds and thiamine 100mg daily.
Discharge Plan
-
Patient Disposition: Home (Routine Discharge)
Discharge Diagnosis/Procedures: Gastroenteritis, fatty infiltration of the liver (suggestive of cirrhosis), cholelithiasis, alcohol withdrawal syndrome, hyperlipidemia, hypothyroidism, uterine fibroid
Condition: Good
Diet: Low Fat, Low Fiber and Low Residue
Additional Diets: No alcohol
Activity: As tolerated
Driving Restrictions: As prior to admission
Bathing Restrictions: None
Activity Restrictions/Additional Instructions:
important for you to follow up with GI for fatty liver as the CT showing possible early changes leading to cirrhosis. You need further testing. Completely stop alcohol.
Stand Alone Forms: Return to Work
Referrals:
Teresa Alcantar PA [Family Provider] -
Mariah Hager MD [Active] -
Prescriptions:
New
thiamine HCl (vitamin B1) 100 mg Tablet
100 mg PO DAILY Qty: 60 0RF
Continued
atorvastatin 20 mg tablet
20 mg PO QPM
levothyroxine [Synthroid] 75 mcg Tablet
75 mcg PO DAILY
ergocalciferol (vitamin D2) 1,250 mcg (50,000 unit) Capsule
1,250 mcg PO MO
cyanocobalamin (vitamin B-12) 1,000 mcg Tablet
1,000 mcg PO DAILY
Discharge Orders:
Discharge Patient (As Directed); Ordered 10/08/23
Ordered By: Demarcus Sanchez
Discharge Date and Time
Discharge Date/Time: 10/08/23 17:10
Print Language: [id number]
[2023-10-08] MEDS: VITAMIN B-12 1000 MCG PO (10:23)
[2023-10-08] MEDS: FOLVITE 1 MG PO (10:23)
[2023-10-08] MEDS: VITAMIN B1 100 MG PO (10:23)
[2023-10-08] MEDS: MAGNESIUM OXIDE 500 MG PO (10:23)
[2023-10-08] MEDS: PROTONIX IV 40 MG IV (10:24)
[2023-10-08] MEDS: NSS (PRESERVATIVE FREE) 10 ML IV (10:24)
[2023-10-08] MEDS: KCL 20 MEQ PO (11:34)
[2023-10-08] MEDS: MAGNESIUM SULFATE 100 IV (11:35)
[2023-10-08 15:23] VITALS: BP 118/82
== END 2023-10-08 17:10 | disposition home or self-care (01) | DRG 392 ==
LOC: 4 EAST ACU 16:33
PROVIDERS: ADMITTING PHYSICIAN Internal Medicine; ATTENDING PHYSICIAN Hospitalist; CONSULT PHYSICIAN Internal Medicine Gastroenterology; CONSULT PHYSICIAN Surgery; EMERGENCY PHYSICIAN Emergency Medicine; FAMILY PHYSICIAN Physician Assistant Medical
DX: K29.20 Alcoholic gastritis without bleeding (principal); E87.1 Hypo-osmolality and hyponatremia; F10.130 Alcohol abuse with withdrawal, uncomplicated; K70.30 Alcoholic cirrhosis of liver without ascites; K70.10 Alcoholic hepatitis without ascites; E03.9 Hypothyroidism, unspecified; E78.00 Pure hypercholesterolemia, unspecified; K80.20 Calculus of gallbladder without cholecystitis without obstruction; K76.0 Fatty (change of) liver, not elsewhere classified; R16.2 Hepatomegaly with splenomegaly, not elsewhere classified; E87.6 Hypokalemia; E83.42 Hypomagnesemia; D69.59 Other secondary thrombocytopenia; Z79.890 Hormone replacement therapy; Z87.891 Personal history of nicotine dependence
CPT/HCPCS: 71046; 74177; 76700; 80048; 80053; 80306; 80307; 81003; 81015; 82010; 82077; 82977; 83690; 83735; 84100; 84484; 84703; 85025; 85027; 85610; 85730; 87045; 87046; 87324; 87427; 87449; 93005; 96361; 96374; 96375; 96376; 99285; Q9967

== ENCOUNTER → 2023-12-02 08:46 | Outpatient (REF) | payer BC, SELFPAY | LOC: RAD 08:46 | PROVIDERS: ATTENDING PHYSICIAN Internal Medicine Rheumatology; FAMILY PHYSICIAN Physician Assistant Medical | DX: M25.579 Pain in unspecified ankle and joints of unspecified foot (principal); M25.549 Pain in joints of unspecified hand | CPT/HCPCS: 76882 ==

== ENCOUNTER → 2023-12-16 06:24 | Day surgery (SDC) | payer BC, SELFPAY | LOC: GI 06:24 | PROVIDERS: ATTENDING PHYSICIAN Internal Medicine | DX: K74.60 Unspecified cirrhosis of liver (principal); K22.89 Other specified disease of esophagus; I85.10 Secondary esophageal varices without bleeding; K31.89 Other diseases of stomach and duodenum; K29.50 Unspecified chronic gastritis without bleeding | CPT/HCPCS: 43239; 88305; 88342 ==

== ENCOUNTER → 2024-01-07 12:08 | Outpatient (REF) | payer BC, SELFPAY | LOC: MRI 3T 12:08 | PROVIDERS: ATTENDING PHYSICIAN Specialist; FAMILY PHYSICIAN Physician Assistant Medical | DX: G95.9 Disease of spinal cord, unspecified (principal) | CPT/HCPCS: 72156; A9575 ==